=== PATIENT | female | born 1980 | race Caucasian/White ===

== ENCOUNTER → 2017-04-08 | Outpatient (CLI) | payer BC ==
[2017-04-08 09:11] LABS: CH 29.2; CHCM 32.9; HCT 37.3 % (34.0-46.0); HDW 2.19; HGB 12.5 gm/dL (11.4-16.0); MCH 29.8 pg (25.0-35.0); MCHC 33.4 g/dL (31.0-37.0); MCV 89.2 fL (80.0-100.0); Mean Platelet Volume 7.2; RBC 4.18 m/uL (3.80-5.40); RDW 12.7 % (11.5-15.5); WBC 9.6 k/uL (3.8-10.6)
[2017-04-08 11:07] LABS: ALT 29 U/L (9-52); AST 16 U/L (14-36); Alkaline Phosphatase 86 U/L (38-126); Anion Gap 11 mmol/L; Blood Urea Nitrogen 12 mg/dL (7-17); Calcium 9.4 mg/dL (8.4-10.2); Carbon Dioxide 25 mmol/L (22-30); Chloride 102 mmol/L (98-107); Cholesterol 173 mg/dL (<200); Glucose 88 mg/dL (74-99); HDL Cholesterol 70 mg/dL (40-60); Non-African American GFR(MDRD) >60 (>60 ml/min/1.73 sqM); Sodium 138 mmol/L (137-145); Total Bilirubin 0.5 mg/dL (0.2-1.3); Total Protein 6.9 g/dL (6.3-8.2); Triglycerides 117 mg/dL (<150)
[2017-04-08 11:09] LABS: Potassium 4.9 mmol/L (3.5-5.1)
[2017-04-08 11:18] LABS: Follicle Stimulating Hormone 2.4 mIU/mL
[2017-04-08 11:23] LABS: Hemoglobin A1C 5.1 % (4.2-6.1)
[2017-04-08 11:34] LABS: Estradiol 31 pg/mL
[2017-04-08 11:49] LABS: Vitamin B12 527 pg/mL (239-931)
== END | disposition home or self-care (01) ==
LOC: LABWHC1 07:58
PROVIDERS: ATTEND Obstetrics & Gynecology
DX: N94.6 Dysmenorrhea, unspecified (principal); F32.9 Major depressive disorder, single episode, unspecified; E66.9 Obesity, unspecified
CPT/HCPCS: 36415; 80053; 80061; 82306; 82607; 82670; 83001; 83036; 84403; 84439; 84443; 85027

== ENCOUNTER → 2024-03-09 | Outpatient (CLI) | payer BC ==
--- NOTE | 2024-03-12 17:45 | MM ---
Reason for Exam: Screening (asymptomatic). Last mammogram was performed 1 year(s) and 3 month(s) ago. Patient History: Menarche at age 9. First Full-Term at age 31. Late child-bearing (after 29). Premenopausal. Currently using Hormonal Contraceptives, starting at age 17. Risk Values: Jade 5 year model risk: 1.2%. NCI Lifetime model risk: 14.3%. Prior Study Comparison: 04/10/2021 Right Diagnostic Mammogram, [facility]. 08/27/2022 Bilateral Screening Mammogram, [facility]. 11/12/2022 Left Diagnostic Mammogram, [facility]. 11/18/2022 Left Diagnostic Ultrasound, [facility]. 07/26/2023 Left Diagnostic Ultrasound, [facility]. Tissue Density: The breasts are almost entirely fatty. Findings: Analyzed By CAD. Unchanged low axillary tail lymph node on the left. There is no suspicious group of microcalcifications or new suspicious mass in either breast. Overall Assessment: Benign, BI-RAD 2 Management: Screening Mammogram of both breasts in 1 year. . Patient should continue monthly self-breast exams. A clinical breast exam by your physician is recommended on an annual basis. This exam should not preclude additional follow-up of suspicious palpable abnormalities. Note on Jade scores and lifetime risk: 1. A Jade score greater than 3% is considered moderate risk. If this is the case, consider specialist referral to assess eligibility for a risk reducing agent. 2. If overall lifetime risk for the development of breast cancer is 20% or higher, the patient may qualify for future screening with alternating mammogram and breast MRI. Electronically signed and approved by: Randall Pulido M.D. Radiologist
== END | disposition home or self-care (01) ==
LOC: RADMAMWWP 10:39
PROVIDERS: ATTEND Obstetrics & Gynecology
DX: Z12.31 Encounter for screening mammogram for malignant neoplasm of breast (principal)
CPT/HCPCS: 77063; 77067

== ENCOUNTER → 2025-03-24 | Outpatient (CLI) | payer BC ==
[2025-03-24 13:40] LABS: ALT 38 U/L (8-44); AST 31 U/L (13-35); Albumin 4.2 g/dL (3.8-4.9); Albumin/Globulin Ratio 1.35 Ratio (1.60-3.17); Alkaline Phosphatase 96 U/L (41-126); Anion Gap 13.70 mmol/L (4.00-12.00); BUN/Creat Ratio 20.40 Ratio (12.00-20.00); Blood Urea Nitrogen 10.2 mg/dL (9.0-27.0); Calcium 9.2 mg/dL (8.7-10.3); Carbon Dioxide 22.3 mmol/L (21.6-31.8); Chloride 102 mmol/L (96-109); Cholesterol 170.00 mg/dL (0.00-200.00); Globulin 3.1 g/dL (1.6-3.3); Glucose 84 mg/dL (70-110); HDL Cholesterol 42.70 mg/dL (40.00-60.00); LDL Cholesterol,Calculated 110.1 mg/dL (0.0-131.0); Potassium 4.4 mmol/L (3.5-5.5); Sodium 138 mmol/L (135-145); Total Protein 7.3 g/dL (6.2-8.2); Triglycerides 86.20 mg/dL (0.00-149.00); VLDL Calculation 17.24 mg/dL (5.00-40.00)
== END | disposition home or self-care (01) ==
LOC: LABWHC1 08:18
PROVIDERS: ATTEND Family Medicine
DX: I10 Essential (primary) hypertension (principal); E66.01 Morbid (severe) obesity due to excess calories; F33.1 Major depressive disorder, recurrent, moderate; Z71.3 Dietary counseling and surveillance
CPT/HCPCS: 36415; 80053; 80061; 83036